=== PATIENT | male | born 1950 | race Native Hawaiian/Other Pacific Islander ===

== ENCOUNTER 2020-01-28 10:54 | Outpatient (CLI) | payer OTHER | END 2020-01-28 22:56 | disposition home or self-care (01) | LOC: MRI 10:54 | DX: M54.16 Radiculopathy, lumbar region (principal) ==

== ENCOUNTER 2023-07-20 10:59 | Outpatient (CLI) | payer OTHER | END 2023-07-20 19:51 | disposition home or self-care (01) | LOC: CT 10:59 | PROVIDERS: ATTEND Nurse Practitioner Family | DX: Z12.2 Encounter for screening for malignant neoplasm of respiratory organs (principal); Z87.891 Personal history of nicotine dependence; R06.02 Shortness of breath ==